=== PATIENT | female | born 1970 | race Hispanic/Latino ===

== ENCOUNTER 2023-10-08 10:11 | Outpatient (RCR) | payer OTHER, SELFPAY ==
[2023-10-08 10:19] VITALS: BP 114/64
[2023-10-08] MEDS: NUCALA 1 MG SC (10:32)
== END 2023-10-15 23:59 | disposition home or self-care (01) ==
LOC: OID 10:11
PROVIDERS: ATTENDING PHYSICIAN Internal Medicine Critical Care Medicine; FAMILY PHYSICIAN Family Medicine
DX: J45.51 Severe persistent asthma with (acute) exacerbation (principal); J45.40 Moderate persistent asthma, uncomplicated (principal); D72.19 Other eosinophilia; M35.9 Systemic involvement of connective tissue, unspecified; Z87.01 Personal history of pneumonia (recurrent); Z77.29 Contact with and (suspected) exposure to other hazardous substances
CPT/HCPCS: 96372; J2182

== ENCOUNTER 2023-11-05 10:12 | Outpatient (RCR) | payer OTHER, SELFPAY ==
[2023-11-05 10:40] VITALS: BP 136/63
[2023-11-05] MEDS: NUCALA 1 MG SC (10:56)
== END 2023-11-06 09:21 | disposition home or self-care (01) ==
LOC: OID 10:12
PROVIDERS: ATTENDING PHYSICIAN Internal Medicine Critical Care Medicine; FAMILY PHYSICIAN Family Medicine
DX: J45.51 Severe persistent asthma with (acute) exacerbation (principal); D72.19 Other eosinophilia; M35.9 Systemic involvement of connective tissue, unspecified; Z87.01 Personal history of pneumonia (recurrent); Z77.29 Contact with and (suspected) exposure to other hazardous substances
CPT/HCPCS: 96372; J2182

== ENCOUNTER 2023-12-08 10:42 | Outpatient (RCR) | payer OTHER, SELFPAY ==
[2023-12-08 10:40] VITALS: BP 120/63
[2023-12-08] MEDS: NUCALA 1 MG SC (11:13)
== END 2023-12-08 12:36 | disposition home or self-care (01) ==
LOC: OID 10:42
PROVIDERS: ATTENDING PHYSICIAN Internal Medicine Critical Care Medicine; FAMILY PHYSICIAN Family Medicine
DX: J45.40 Moderate persistent asthma, uncomplicated (principal); D72.19 Other eosinophilia; M35.9 Systemic involvement of connective tissue, unspecified; Z87.01 Personal history of pneumonia (recurrent); Z77.29 Contact with and (suspected) exposure to other hazardous substances
CPT/HCPCS: 96372; J2182

== ENCOUNTER → 2023-12-09 18:53 | Outpatient (REF) | payer OTHER, SELFPAY | LOC: WDC 18:53 | PROVIDERS: ATTENDING PHYSICIAN Obstetrics & Gynecology Gynecology | DX: Z12.31 Encounter for screening mammogram for malignant neoplasm of breast (principal) | CPT/HCPCS: 77063; 77067 ==

== ENCOUNTER 2024-01-05 11:20 | Outpatient (RCR) | payer OTHER, SELFPAY ==
[2024-01-05 11:30] VITALS: BP 132/63
[2024-01-05] MEDS: NUCALA 1 MG SC (11:43)
== END 2024-01-06 12:46 | disposition home or self-care (01) ==
LOC: OID 11:20
PROVIDERS: ATTENDING PHYSICIAN Internal Medicine Critical Care Medicine; FAMILY PHYSICIAN Family Medicine
DX: J45.51 Severe persistent asthma with (acute) exacerbation (principal); D72.19 Other eosinophilia; M35.9 Systemic involvement of connective tissue, unspecified; Z87.01 Personal history of pneumonia (recurrent); Z77.29 Contact with and (suspected) exposure to other hazardous substances
CPT/HCPCS: 96372; J2182

== ENCOUNTER 2024-02-11 11:05 | Outpatient (RCR) | payer OTHER, SELFPAY ==
[2024-02-11 11:14] VITALS: BP 112/60
[2024-02-11] MEDS: NUCALA 1 MG SC (11:26)
== END 2024-02-12 09:21 | disposition home or self-care (01) ==
LOC: OID 11:05
PROVIDERS: ATTENDING PHYSICIAN Internal Medicine Critical Care Medicine; FAMILY PHYSICIAN Family Medicine
DX: J45.40 Moderate persistent asthma, uncomplicated (principal); J45.51 Severe persistent asthma with (acute) exacerbation (principal); D72.19 Other eosinophilia; M35.9 Systemic involvement of connective tissue, unspecified; Z87.01 Personal history of pneumonia (recurrent); Z77.29 Contact with and (suspected) exposure to other hazardous substances
CPT/HCPCS: 96372; J2182

== ENCOUNTER 2024-03-10 11:03 | Outpatient (RCR) | payer OTHER, SELFPAY ==
[2024-03-10 11:14] VITALS: BP 115/64
[2024-03-10] MEDS: NUCALA 1 MG SC (11:32)
== END 2024-03-11 11:37 | disposition home or self-care (01) ==
LOC: OID 11:03
PROVIDERS: ATTENDING PHYSICIAN Internal Medicine Critical Care Medicine; FAMILY PHYSICIAN Family Medicine
DX: J45.51 Severe persistent asthma with (acute) exacerbation (principal); D72.19 Other eosinophilia; M35.9 Systemic involvement of connective tissue, unspecified; Z87.01 Personal history of pneumonia (recurrent); Z77.29 Contact with and (suspected) exposure to other hazardous substances
CPT/HCPCS: 96372; J2182

== ENCOUNTER 2024-04-07 11:04 | Outpatient (RCR) | payer OTHER, SELFPAY ==
[2024-04-07 11:15] VITALS: BP 130/76
[2024-04-07] MEDS: NUCALA 1 MG SC (11:29)
== END 2024-04-08 08:25 | disposition home or self-care (01) ==
LOC: OID 11:04
PROVIDERS: ATTENDING PHYSICIAN Internal Medicine Critical Care Medicine; FAMILY PHYSICIAN Family Medicine
DX: D72.19 Other eosinophilia (principal); M35.9 Systemic involvement of connective tissue, unspecified; Z77.29 Contact with and (suspected) exposure to other hazardous substances
CPT/HCPCS: 96372; J2182

== ENCOUNTER 2024-05-28 09:13 | Outpatient (RCR) | payer OTHER, SELFPAY ==
[2024-05-28 09:46] VITALS: BP 115/80
[2024-05-28] MEDS: NUCALA 1 MG SC (10:01)
== END 2024-05-31 09:38 | disposition home or self-care (01) ==
LOC: OID 09:13
PROVIDERS: ATTENDING PHYSICIAN Internal Medicine Critical Care Medicine; FAMILY PHYSICIAN Family Medicine
DX: J45.51 Severe persistent asthma with (acute) exacerbation (principal); J45.40 Moderate persistent asthma, uncomplicated (principal); D72.19 Other eosinophilia; M35.9 Systemic involvement of connective tissue, unspecified; Z87.01 Personal history of pneumonia (recurrent); Z77.29 Contact with and (suspected) exposure to other hazardous substances
CPT/HCPCS: 96372; J2182

== ENCOUNTER 2024-06-23 11:09 | Outpatient (RCR) | payer OTHER, SELFPAY ==
[2024-06-23 11:19] VITALS: BP 116/66
[2024-06-23] MEDS: NUCALA 1 MG SC (11:29)
== END 2024-07-15 14:52 | disposition home or self-care (01) ==
LOC: OID 11:09
PROVIDERS: ATTENDING PHYSICIAN Internal Medicine Critical Care Medicine; FAMILY PHYSICIAN Family Medicine
DX: J45.40 Moderate persistent asthma, uncomplicated (principal); D72.19 Other eosinophilia; R76.8 Other specified abnormal immunological findings in serum; M35.9 Systemic involvement of connective tissue, unspecified; Z87.01 Personal history of pneumonia (recurrent); Z77.29 Contact with and (suspected) exposure to other hazardous substances
CPT/HCPCS: 96372; J2182

== ENCOUNTER 2024-07-28 11:06 | Outpatient (RCR) | payer OTHER, SELFPAY ==
[2024-07-28 11:14] VITALS: BP 129/81
[2024-07-28] MEDS: NUCALA 1 MG SC (11:45)
== END 2024-07-29 11:05 | disposition home or self-care (01) ==
LOC: OID 11:06
PROVIDERS: ATTENDING PHYSICIAN Internal Medicine Critical Care Medicine; FAMILY PHYSICIAN Family Medicine
DX: J45.40 Moderate persistent asthma, uncomplicated (principal); D72.19 Other eosinophilia; R76.8 Other specified abnormal immunological findings in serum; M35.9 Systemic involvement of connective tissue, unspecified; Z87.01 Personal history of pneumonia (recurrent); Z77.29 Contact with and (suspected) exposure to other hazardous substances
CPT/HCPCS: 96372; J2182

== ENCOUNTER 2024-08-23 11:03 | Outpatient (RCR) | payer OTHER, SELFPAY ==
[2024-08-23 11:12] VITALS: BP 121/72
[2024-08-23] MEDS: NUCALA 1 MG SC (11:24)
== END 2024-08-30 10:39 | disposition home or self-care (01) ==
LOC: OID 11:03
PROVIDERS: ATTENDING PHYSICIAN Internal Medicine Critical Care Medicine; FAMILY PHYSICIAN Family Medicine
DX: J45.40 Moderate persistent asthma, uncomplicated (principal); D72.19 Other eosinophilia; M35.9 Systemic involvement of connective tissue, unspecified; R76.8 Other specified abnormal immunological findings in serum; Z87.01 Personal history of pneumonia (recurrent); Z77.29 Contact with and (suspected) exposure to other hazardous substances
CPT/HCPCS: 96372; J2182

== ENCOUNTER 2024-10-13 13:42 | Outpatient (RCR) | payer OTHER, SELFPAY ==
[2024-10-13 13:58] VITALS: BP 129/66
[2024-10-13] MEDS: NUCALA 1 MG SC (14:11)
== END 2024-10-14 11:13 | disposition home or self-care (01) ==
LOC: OID 13:42
PROVIDERS: ATTENDING PHYSICIAN Internal Medicine Critical Care Medicine; FAMILY PHYSICIAN Family Medicine
DX: J45.40 Moderate persistent asthma, uncomplicated (principal); D72.19 Other eosinophilia; R76.8 Other specified abnormal immunological findings in serum; M35.9 Systemic involvement of connective tissue, unspecified; Z87.01 Personal history of pneumonia (recurrent); Z77.29 Contact with and (suspected) exposure to other hazardous substances
CPT/HCPCS: 96372; J2182

== ENCOUNTER 2024-12-08 14:06 | Outpatient (RCR) | payer OTHER, SELFPAY ==
[2024-12-08 14:20] VITALS: BP 119/67
[2024-12-08] MEDS: NUCALA 1 MG SC (14:33)
== END 2024-12-09 11:20 | disposition home or self-care (01) ==
LOC: OID 14:06
PROVIDERS: ATTENDING PHYSICIAN Internal Medicine Critical Care Medicine; FAMILY PHYSICIAN Family Medicine
DX: J45.40 Moderate persistent asthma, uncomplicated (principal); D72.19 Other eosinophilia; R06.81 Apnea, not elsewhere classified; Z77.29 Contact with and (suspected) exposure to other hazardous substances
CPT/HCPCS: 96372; J2182

== ENCOUNTER → 2024-12-30 18:59 | Outpatient (REF) | payer OTHER, SELFPAY | LOC: WDC 18:59 | PROVIDERS: ATTENDING PHYSICIAN Obstetrics & Gynecology Gynecology; FAMILY PHYSICIAN Family Medicine | DX: Z12.31 Encounter for screening mammogram for malignant neoplasm of breast (principal) | CPT/HCPCS: 77063; 77067 ==

== ENCOUNTER 2025-01-05 14:06 | Outpatient (RCR) | payer OTHER, SELFPAY ==
[2025-01-05 14:11] VITALS: BP 125/60
[2025-01-05] MEDS: NUCALA 1 MG SC (14:36)
== END 2025-01-06 09:44 | disposition home or self-care (01) ==
LOC: OID 14:06
PROVIDERS: ATTENDING PHYSICIAN Internal Medicine Critical Care Medicine; FAMILY PHYSICIAN Family Medicine
DX: J45.40 Moderate persistent asthma, uncomplicated (principal); D72.19 Other eosinophilia; R76.8 Other specified abnormal immunological findings in serum; R06.81 Apnea, not elsewhere classified; Z77.29 Contact with and (suspected) exposure to other hazardous substances
CPT/HCPCS: 96372; J2182

== ENCOUNTER 2025-02-02 13:53 | Outpatient (RCR) | payer OTHER, SELFPAY ==
[2025-02-02 14:00] VITALS: BP 144/82
[2025-02-02] MEDS: NUCALA 1 MG SC (14:09)
== END 2025-02-03 12:47 | disposition home or self-care (01) ==
LOC: OID 13:53
PROVIDERS: ATTENDING PHYSICIAN Internal Medicine Critical Care Medicine; FAMILY PHYSICIAN Family Medicine
DX: J45.40 Moderate persistent asthma, uncomplicated (principal)
CPT/HCPCS: 96372; J2182

== ENCOUNTER 2025-03-02 13:56 | Outpatient (RCR) | payer OTHER, SELFPAY ==
[2025-03-02 14:07] VITALS: BP 144/75
[2025-03-02] MEDS: NUCALA 1 MG SC (14:22)
== END 2025-03-03 08:51 | disposition home or self-care (01) ==
LOC: OID 13:56
PROVIDERS: ATTENDING PHYSICIAN Internal Medicine Critical Care Medicine; FAMILY PHYSICIAN Family Medicine
DX: J45.40 Moderate persistent asthma, uncomplicated (principal)
CPT/HCPCS: 96372; J2182

== ENCOUNTER 2025-03-30 13:51 | Outpatient (RCR) | payer OTHER, SELFPAY ==
[2025-03-30 14:07] VITALS: BP 136/74
[2025-03-30] MEDS: NUCALA 1 MG SC (14:14)
== END 2025-03-31 08:50 | disposition home or self-care (01) ==
LOC: OID 13:51
PROVIDERS: ATTENDING PHYSICIAN Internal Medicine Critical Care Medicine; FAMILY PHYSICIAN Family Medicine
DX: J45.40 Moderate persistent asthma, uncomplicated (principal); D72.19 Other eosinophilia; Z77.29 Contact with and (suspected) exposure to other hazardous substances
CPT/HCPCS: 96372; J2182

== ENCOUNTER → 2025-07-07 17:23 | Outpatient (REF) | payer OTHER, SELFPAY | LOC: RAD 17:23 | PROVIDERS: ATTENDING PHYSICIAN Family Medicine | DX: M25.562 Pain in left knee (principal) | CPT/HCPCS: 73564 ==